=== PATIENT | female | born 2000 | race Caucasian/White ===

== ENCOUNTER 2019-03-23 22:56 | Emergency (ER) | payer OTHER ==
[~2019-03-23] VITALS: Ht 170.2 cm; Wt 81.7 kg
--- OUTSIDE RECORDS SUMMARY | ~2019-03-23 | XMS | Clinical Summary ---
Demographics + + + | Address | [address] | | | [place] [address] | + + + | Home Phone | | + + + | Preferred Language | Unknown | + + + | Marital Status | Single | + + + | Taoism Affiliation | Unknown | + + + | Race | Unknown | + + + | Ethnic Group | Unknown | + + + Author + + + | Author | [facility] [facility] | + + + | Organization | [facility] | + + + | Address | Unknown | + + + | Phone | Unavailable | + + + Support + + +---------+ + | Name | Relationship | Address | Phone | + + +---------+ + | Dori Wolff | ECON | Unknown | | + + +---------+ + Care Team Providers + +------+ + | Care Organ Installer Name | Role | Phone | + +------+ + PP | Unavailable | + +------+ + Allergies No Known Allergies Current Medications + + +--------+---------+------+------+-------+ | Prescription | Sig. | Disp. | Refills | Star | End | Statu | | | | | | t | Date | s | | | | | | Date | | | + + +--------+---------+------+------+-------+ | ferrous sulfate, | Take 65 mg of iron | | | | | Activ | | 65 FE, 324 (65 Fe) | by mouth 3 (three) | | | | | e | | MG EC tablet | times daily with | | | | | | | | meals. | | | | | | + + +--------+---------+------+------+-------+ | | Take 1 tablet by | 28 | 11 | 01/0 | | Activ | | levonorgestrel-ethin | mouth daily. | tablet | | 4/20 | | e | | yl estradiol | | | | 18 | | | | (GENESIS LEUNG LESSI | | | | | | | | NA) 0.1-20 MG-MCG | | | | | | | | per | | | | | | | | tabletIndications: | | | | | | | | Encounter for | | | | | | | | initial prescription | | | | | | | | of contraceptive | | | | | | | | pills | | | | | | | + + +--------+---------+------+------+-------+ Active Problems + + + | Problem | Noted Date | + + + | History of gestational hypertension | 10/26/2017 | + + + Resolved Problems + + + + | Problem | Noted | Resolved | | | Date | Date | + + + + | Amniotic fluid leaking | 09/04/20 | | | | 17 | 8 | + + + + | Indication for care or intervention related to labor and delivery | 09/04/20 | | | | 17 | 8 | + + + + | Anemia affecting in third trimester | 09/04/20 | | | | 17 | 8 | + + + + | Vacuum extraction, delivered, current hospitalization | 09/04/20 | | | | 17 | 8 | + + + + | Chorioamnionitis in third trimester, fetus 1 | 09/04/20 | | | | 17 | 8 | + + + + | Elevated blood pressure affecting in third trimester, | 08/30/20 | | | antepartum | 17 | 7 | + + + + | Decreased movements in third trimester | 08/30/20 | | | | 17 | 8 | + + + + | PIH ( induced hypertension) | 07/18/20 | | | | 17 | 8 | + + + + | Supervision of high risk in third trimester | 07/18/20 | | | | 17 | 8 | + + + + Social History + +-------+ +--------+------+ | Tobacco Use | Types | Packs/Day | Years | Date | | | | | Used | | + +-------+ +--------+------+ | Never Smoker | | | | | + +-------+ +--------+------+ + +---+---+---+ | Smokeless Tobacco: | | | | | Never Used | | | | + +---+---+---+ + + +---------+ + | Alcohol Use | Drinks/We | oz/Week | Comments | | | ek | | | + + +---------+ + | Yes | | | Socially | + + +---------+ + + + + | Sex Assigned at | Date Recorded | | | | + + + | Not on file | | + + + Last Filed Vital Signs + + + + | Vital Sign | Reading | Time Taken | + + + + | Blood Pressure | 118/66 | 10/26/2017 11:34 AM PST | + + + + | Pulse | 93 | 10/26/2017 11:34 AM PST | + + + + | Temperature | 36.7 C (98.1 F) | 09/06/2017 2:09 PM PST | + + + + | Respiratory Rate | 18 | 09/06/2017 2:09 PM PST | + + + + | Oxygen Saturation | 98% | 10/26/2017 11:34 AM PST | + + + + | Inhaled Oxygen | - | - | | Concentration | | | + + + + | Weight | 75.7 kg (166 lb 12.8 | 10/26/2017 11:34 AM PST | | | oz) | | + + + + | Height | 167.6 cm (5' 6") | 10/26/2017 11:34 AM PST | + + + + | Body Mass Index | 26.92 | 10/26/2017 11:34 AM PST | + + + + Plan of Treatment + + + + + | Health Maintenance | Due Date | Last Done | Comments | + + + + + | Well Child Check | | | | | | 2 | | | + + + + + | Vaccine: HPV (1 - | | | | | Female 3-dose | 4 | | | | series) | | | | + + + + + | Vaccine: | | | | | Dtap/Tdap/Td (1 - | 8 | | | | Tdap) | | | | + + + + + | Vaccine: Influenza | | | | | (Season Ended) | 9 | | | + + + + + Results Not on filefrom Last 3 Months Insurance + +--------+ +------+-------+ + | Payer | Benefi | Subscriber | Type | Phone | Address | | | t Plan | ID | | | | | | / | | | | | | | Group | | | | | + +--------+ +------+-------+ + | MEDICAID | [employer] | [id number] | | | [address] | | | [place] | | | | [place] | | | [place] | | | | [phone] | | | [employer] | | | | | + +--------+ +------+-------+ + + +--------+ +--------+ + + | Guarantor Name | Accoun | Relation to | Date | Phone | Billing Address | | | t Type | Patient | of | | | | | | | | | | + +--------+ +--------+ + + | KATIE HENSLEY | Person | Self [birth year] Home: | [address] | | | al/Fam | | 2000 | [phone] | [place] [address] | | | claude | | [phone] | | + +--------+ +--------+ + +
--- OUTSIDE RECORDS SUMMARY | ~2019-03-23 | XMS | Clinical Summary ---
Demographics + + + | Address | [address] | | | [place] [address] | + + + | Home Phone | | + + + | Preferred Language | Unknown | + + + | Marital Status | Single | + + + | Shinto Affiliation | Unknown | + + + | Race | Unknown | + + + | Ethnic Group | Unknown | + + + Author + + + | Author | [employer] [facility] | + + + | Organization | [facility] | + + + | Address | Unknown | + + + | Phone | Unavailable | + + + Support + + +---------+ + | Name | Relationship | Address | Phone | + + +---------+ + | Dori Wolff | ECON | Unknown | | + + +---------+ + Care Team Providers + +------+ + | Care Sweatband Perforator Name | Role | Phone | + [...] +------+-------+ + | MEDICAID | [employer] | [id number] | | | [address] | | | [place] | | | | [place] | | | [place] | | | | [phone] | | | TELEPHONE INTERVIEWER | | | | | + +--------+ [...] | Self | [birth year] | Home: | [address] | | | al/Fam | | 2000 | [phone] | [place] [address] | | | claude | | | [phone] | | + +--------+ +--------+ + +
== END 2019-03-24 02:50 | disposition home or self-care (01) ==
LOC: ED 22:56
DX: R51 Headache (principal); F17.200 Nicotine dependence, unspecified, uncomplicated
CPT/HCPCS: 80053; 84703; 85025; 96374; 96375; 99284-25; J1200; J1885; J2765; J7030